=== PATIENT | female | born 1950 | race Caucasian/White ===

== ENCOUNTER 2018-08-04 14:00 | Emergency (ER) | payer MEDICARE, OTHER ==
[2018-08-04] MEDS ORDERED: ASPIRIN 81 MG TABLET, CHEWABLE PO ONE (14:46)
--- NOTE | 2018-08-04 14:49 | ER Document Report ---
ED Medical Screen (RME) - General Chief Complaint: Shortness Of Breath Stated Complaint: SHORT OF BREATH/ABNORMAL LABS Time Seen by Provider: 08/04/18 14:43 TRAVEL OUTSIDE OF THE [place] IN LAST 30 DAYS: No - HPI Notes: 08/04/18 14:49 Short of breath history of mitral valve prolapse seen in urgent care - Related Data Allergies/Adverse Reactions: Sulfa (Sulfonamide Antibiotics) Allergy (Verified 08/04/18 14:02) Past Medical History - Social History Chew tobacco use (# tins/day): No Frequency of alcohol use: None Drug Abuse: None Renal/ Medical History: Denies: Hx Peritoneal Dialysis Past Surgical History: Reports: Hx Cholecystectomy, Hx Hysterectomy Review of Systems - Review of Systems Respiratory: Short of breath Physical Exam - Vital signs Vitals: Temp Pulse Resp BP Pulse Ox 98.1 F 102 H 20 144/76 H 94 08/04/18 14:16 08/04/18 14:16 08/04/18 14:16 08/04/18 14:16 08/04/18 14:16 - Respiratory Respiratory status: No respiratory distress Chest status: Nontender Breath sounds: Normal Chest palpation: Normal - Cardiovascular Rhythm: Regular Heart sounds: Normal auscultation Course - Vital Signs Vital signs: Temp Pulse Resp BP Pulse Ox 98.1 F 102 H 20 144/76 H 97 08/04/18 14:16 08/04/18 14:16 08/04/18 14:16 08/04/18 14:16 08/04/18 14:17
--- NOTE | 2018-08-04 15:07 | RADIOLOGY REPORT (SQ) ---
EXAM DESCRIPTION: CHEST SINGLE VIEW COMPLETED DATE/TIME: 08/04/2018 2:57 pm REASON FOR STUDY: sob COMPARISON: None. EXAM PARAMETERS: NUMBER OF VIEWS: One view. TECHNIQUE: Single frontal radiographic view of the chest acquired. RADIATION DOSE: NA LIMITATIONS: None. FINDINGS: LUNGS AND PLEURA: Small bilateral pleural effusions are present. Pulmonary vascular congestion with mild perihilar pulmonary edema bilaterally. No pneumothorax MEDIASTINUM AND HILAR STRUCTURES: No masses. Contour normal. HEART AND VASCULAR STRUCTURES: Mild cardiomegaly BONES: No acute findings. HARDWARE: None in the chest. OTHER: No other significant finding. IMPRESSION: Fluid overload or congestive failure with pulmonary vascular congestion, perihilar pulmo nary edema and small bilateral pleural effusions TECHNICAL DOCUMENTATION: JOB ID: [id number] [employer]- All Rights Reserved Reading location - IP/workstation name: [email or web address]
--- NOTE | 2018-08-04 15:24 | ER Document Report ---
ED General - General Chief Complaint: Shortness Of Breath Stated Complaint: SHORT OF BREATH/ABNORMAL LABS Time Seen by Provider: 08/04/18 14:43 Notes: Patient is a 67-year-old female that presents to the emergency department for chief complaint of shortness of breath. Patient reports that over the last 7 or 8 days she is having progressively worse shortness of breath. Dyspnea on exertion, and orthopnea. She was seen at an urgent care yesterday, and was given an IM dose of Lasix, does feel better today, but she had abnormal labs, was advised to come to the emergency department specifically an elevated troponin. She has no prior history of CHF. Denies history of cardiac disease. She does have Parkinson's and myasthenia gravis. She states she did have exertional chest pain several days ago when she was shoveling dirt, but has not had any pain since that time. She is also had some leg swelling but she does not think it is that bad. She denies any recent fevers, chills, cough, or other illnesses. Past Medical History: Parkinson's, peripheral neuropathy, myasthenia gravis Past Surgical History: Hysterectomy, cholecystectomy Social History: Former smoker, quit over 40 years ago, denies alcohol or drug use Family History: Reviewed and noncontributory for presenting illness Allergies: Reviewed, see documented allergy list. REVIEW OF SYSTEMS: Unless otherwise stated in this report the patient's positive and negative responses for review of systems for constitutional, eyes, ENT, cardiovascular, respiratory, gastrointestinal, neurological, genitourinary, musculoskeletal, and integumentary systems and related systems to the presenting problem are either as stated in the HPI or were not pertinent or were negative for the symptoms and/or complaints related to the presenting medical problem. PHYSICAL EXAMINATION: Vital signs reviewed, nursing noted reviewed. GENERAL: Well-appearing, well-nourished and in no acute distress. HEAD: Atraumatic, normocephalic. EYES: Left eye ptosis noted, chronic per patient, extraocular movements intact, sclera anicteric, conjunctiva are normal. ENT: nares patent, oropharynx clear without exudates. Moist mucous membranes. NECK: Normal range of motion, supple without lymphadenopathy LUNGS: Diminished lung sounds at the bases bilaterally, upper arellano noted to have scattered crackles. HEART: Regular rate and rhythm, severe mitral regurg murmur noted ABDOMEN: Soft, nontender, normoactive bowel sounds. No rebound, guarding, or rigidity. No masses appreciated. EXTREMITIES: Nontender, good range of motion, trace bilateral peripheral edema in the lower extremities NEUROLOGICAL: No focal neurological deficits. Moves all extremities spontaneously Motor and sensory grossly intact on exam. PSYCH: Normal mood, normal affect. SKIN: Warm, Dry, normal turgor, no rashes or lesions noted on exposed skin TRAVEL OUTSIDE OF THE [place] IN LAST 30 DAYS: No - Related Data Allergies/Adverse Reactions: Sulfa (Sulfonamide Antibiotics) Allergy (Verified 08/04/18 14:02) Past Medical History - Social History Smoking Status: Never Smoker Chew tobacco use (# tins/day): No Frequency of alcohol use: None Drug Abuse: None Family History: Reviewed & Not Pertinent Patient has suicidal ideation: No Patient has homicidal ideation: No Renal/ Medical History: Denies: Hx Peritoneal Dialysis Past Surgical History: Reports: Hx Cholecystectomy, Hx Hysterectomy Physical Exam - Vital signs Vitals: Temp Pulse Resp BP Pulse Ox 98.1 F 102 H 20 144/76 H 94 08/04/18 14:16 08/04/18 14:16 08/04/18 14:16 08/04/18 14:16 08/04/18 14:16 Course - Re-evaluation Re-evalutation: Patient seen and examined vital signs reviewed. Laboratory data and imaging were ordered as appropriate for the patient's presenting symptoms and complaint, with consideration of any critical or life threatening conditions that may be associated with their obtained history and exam as noted above. Patient was treated with IV Lasix and aspirin, and placed on supplemental oxygen Results were reviewed when available and demonstrated elevated BNP, chest x-ray demonstrated bilateral large pleural effusions, pulmonary edema The patient was re-evaluated and was improved, still requiring some oxygen, heart rate stable, blood pressure stable Evaluation was most consistent with acute heart failure, suspected recent MT, when patient was having chest pain several days ago, leading to this acute heart failure, and volume overload, I feel the patient will need transfer, and need for heart catheterization, and possible intervention, a call was placed to [facility], as the patient has acute heart failure, does not meet criteria for cardiac catheterization at this institution Results were discussed with the patient at this point after careful consideration I feel that that patient should be transferred to [facility] due to acute heart failure, likely recent NSTEMI. This was discussed with the patient that it is in the best interest for their care to be transferred, the risks and benefits of transfer were discussed, including but not limited to clinical deterioration during transport, respiratory distress, and potential for traumatic injuries. Patient agreed with this plan of care. Patient accepted by Dr. Hull *Note is created using voice recognition software and may contain spelling, syntax or grammatical errors. Laboratory 08/04/18 08/04/18 08/04/18 15:55 15:55 15:55 WBC 9.8 RBC 4.77 Hgb 14.2 Hct 41.9 MCV 88 MCH 29.7 MCHC 33.8 RDW 13.7 Plt Count 263 Seg Neutrophils % 77.9 Lymphocytes % 8.9 L Monocytes % 9.6 Eosinophils % 2.4 Basophils % 1.2 Absolute Neutrophils 7.6 Absolute Lymphocytes 0.9 Absolute Monocytes 0.9 Absolute Eosinophils 0.2 Absolute Basophils 0.1 PT 14.6 INR 1.08 Sodium 140.0 Potassium 4.5 Chloride 104 Carbon Dioxide 21 L Anion Gap 15 BUN 22 H Creatinine 0.68 Est GFR ( Amer) > 60 Est GFR (Non-Af Amer) > 60 Glucose 110 Calcium 9.5 Magnesium 2.0 Total Bilirubin 0.9 Direct Bilirubin 0.2 Neonat Total Bilirubin Not Reportable Neonat Direct Bilirubin Not Reportable Neonat Indirect Bili Not Reportable AST 35 ALT 28 Alkaline Phosphatase 109 Creatine Kinase 217 H CK-MB (CK-2) Troponin I NT-Pro-B Natriuret Pep Total Protein 6.7 Albumin 3.8 Lipase 162.2 08/04/18 08/04/18 15:55 18:45 WBC RBC Hgb Hct MCV MCH MCHC RDW Plt Count Seg Neutrophils % Lymphocytes % Monocytes % Eosinophils % Basophils % Absolute Neutrophils Absolute Lymphocytes Absolute Monocytes Absolute Eosinophils Absolute Basophils PT INR Sodium Potassium Chloride Carbon Dioxide Anion Gap BUN Creatinine Est GFR ( Amer) Est GFR (Non-Af Amer) Glucose Calcium Magnesium Total Bilirubin Direct Bilirubin Neonat Total Bilirubin Neonat Direct Bilirubin Neonat Indirect Bili AST ALT Alkaline Phosphatase Creatine Kinase CK-MB (CK-2) 7.64 H Troponin I 0.027 0.035 NT-Pro-B Natriuret Pep 3960 H Total Protein Albumin Lipase Chest X-Ray 08/04/18 14:46 IMPRESSION: Fluid overload or congestive failure with pulmonary vascular congestion, perihilar pulmonary edema and small bilateral pleural effusions - Vital Signs Vital signs: Temp Pulse Resp BP Pulse Ox 98.1 F 102 H 20 105/73 92 08/04/18 14:16 08/04/18 14:16 08/04/18 23:01 08/04/18 23:01 08/04/18 23:01 - Laboratory Result Diagrams: 08/04/18 15:55 08/04/18 15:55 Laboratory results interpreted by me: 08/04/18 08/04/18 08/04/18 15:55 15:55 15:55 Lymphocytes % 8.9 L Carbon Dioxide 21 L BUN 22 H Creatine Kinase 217 H CK-MB (CK-2) 7.64 H NT-Pro-B Natriuret Pep 3960 H - EKG Interpretation by Me Additional EKG results interpreted by me: EKG demonstrates sinus tachycardia with a ventricular rate of 103 bpm, normal axis, normal intervals, there is slight ST depressions in leads V3 and V4 and V5 , T wave inversion in lead III. No prior for comparison. Discharge - Discharge Clinical Impression: Hypoxia Acute exacerbation of CHF (congestive heart failure) Qualifiers: Heart failure type: systolic Qualified Code(s): I50.23 - Acute on chronic systolic (congestive) heart failure Condition: Stable Disposition: [facility]
[2018-08-04] MEDS ORDERED: FUROSEMIDE INJ/PF 40 MG/4 ML SDV IV ONE (15:41)
[2018-08-04 16:08] LABS: ABSOLUTE BASOPHILS # (AUTO) 0.1 10^3/uL (0.0-0.2); ABSOLUTE EOSINOPHILS # (AUTO) 0.2 10^3/uL (0.0-0.6); ABSOLUTE LYMPHOCYTES (AUTO) 0.9 10^3/uL (0.5-4.7); ABSOLUTE MONOCYTES (AUTO) 0.9 10^3/uL (0.1-1.4); ABSOLUTE NEUT (AUTO) 7.6 10^3/uL (1.7-8.2); BASOPHILS % (AUTO) 1.2 % (0-2); EOSINOPHILS % (AUTO) 2.4 % (0-6); HEMATOCRIT 41.9 % (36.0-47.0); HEMOGLOBIN 14.2 g/dL (12.0-15.5); LYMPHOCYTES % (AUTO) 8.9 % (13-45); MEAN CORPUSCULAR HEMOGLOBIN 29.7 pg (27.0-33.4); MEAN CORPUSCULAR HGB CONC 33.8 g/dL (32.0-36.0); MEAN CORPUSCULAR VOLUME 88 fl (80-97); MONOCYTES % (AUTO) 9.6 % (3-13); PLATELET COUNT 263 10^3/uL (150-450); RED BLOOD COUNT 4.77 10^6/uL (3.72-5.28); RED CELL DISTRIBUTION WIDTH 13.7 % (11.5-14.0); SEGMENTED NEUTROPHILS % (AUTO) 77.9 % (42-78); TOTAL CELLS COUNTED % (AUTO) 100 %; WHITE BLOOD COUNT 9.8 10^3/uL (4.0-10.5)
[2018-08-04 16:18] LABS: INTERNATIONAL RATION (INR) 1.08; PROTHROMBIN TIME 14.6 SEC (11.4-15.4)
[2018-08-04 16:35] LABS: ALANINE AMINOTRANSFERASE 28 U/L (9-52); ALBUMIN 3.8 g/dL (3.5-5.0); ALKALINE PHOSPHATASE 109 U/L (38-126); ANION GAP 15 (5-19); ASPARTATE AMINO TRANSFERASE 35 U/L (14-36); BILIRUBIN,DIRECT 0.2 mg/dL (0.0-0.4); BILIRUBIN,TOTAL 0.9 mg/dL (0.2-1.3); BLOOD UREA NITROGEN 22 mg/dL (7-20); CALCIUM 9.5 mg/dL (8.4-10.2); CARBON DIOXIDE 21 mmol/L (22-30); CHLORIDE 104 mmol/L (98-107); CREATINE KINASE 217 U/L (30-135); GLUCOSE 110 mg/dL (75-110); LIPASE 162.2 U/L (23-300); POTASSIUM 4.5 mmol/L (3.6-5.0); TOTAL PROTEIN 6.7 g/dL (6.3-8.2)
[2018-08-04 16:46] LABS: CREATINE KINASE MB 7.64 ng/mL (<4.55); TROPONIN I 0.027 ng/mL
--- NOTE | 2018-08-04 22:39 | EKG REPORT ---
SEVERITY:- OTHERWISE NORMAL ECG - SINUS TACHYCARDIA : Confirmed by: Josselyn Frank 04-Aug-2018 22:38:26
[2018-08-05 09:15] VITALS: BP 133/89
--- NOTE | 2018-08-05 18:16 | XCELERA REPORT ---
[address] [address] Transthoracic Echocardiogram Report Name: FIDE KINGSLEY Age: 67 yrs Gender: Female : 1950 Patient Status: Emergency Patient Location: ER Study Date: 08/04/2018 06:29 PM Height: 64 in Weight: 181 lb BSA: 1.9 m2 Procedure: A complete two-dimensional transthoracic echocardiogram was performed (2D, M-mode, spectral and color flow Doppler). The study was technically adequate with some images being suboptimal in quality. Reason For Study: blowing systolic murmer Ordering Physician: SHIRLENE OWENS Performed By: Letha Osborne Interpretation Summary The left ventricular ejection fraction is normal. There is borderline concentric left ventricular hypertrophy. LV diastolic function could not be adequately assessed due to significant valve regurgitation and/or stenosis. The left ventricle is grossly normal size. Wall motion cannot be accurately commented on, but no definite regional wall motion abnormalities noted. The right ventricle is grossly normal size. The right ventricular systolic function is normal. The right atrium is normal. The left atrium is moderately dilated. There is a moderate to severe amount of mitral regurgitation There is no mitral valve stenosis. There is no aortic valve stenosis No aortic regurgitation is present. The aortic root is not well visualized but is probably normal size. The inferior vena cava was not well visualized There is no pericardial effusion. MMode/2D Measurements & Calculations RVDd: 2.6 cm LVIDd: 5.3 cm FS: 34.7 % Ao root diam: 2.7 cm IVSd: 0.81 cm LVIDs: 3.5 cm EDV(Teich): 134.5 ml Ao root area: 5.9 cm2 LVPWd: 0.96 cm ESV(Teich): 49.3 ml LA dimension: 4.2 cm EF(Teich): 63.4 % Doppler Measurements & Calculations MV E max maulik: MV P1/2t max maulik: Ao V2 max: LV V1 max P.5 cm/sec 206.3 cm/sec 158.8 cm/sec 3.8 mmHg MV A max maulik: MV P1/2t: 57.5 msec Ao max PG: LV V1 max: 76.1 cm/sec MVA(P1/2t): 3.8 cm2 10.1 mmHg 97.4 cm/sec MV E/A: 2.5 MV dec slope: 1051 cm/sec2 MV dec time: 0.17 sec PA V2 max: PI end-d maulik: TR max maulik: MV P1/2t-pr_phl: 117.3 cm/sec 155.4 cm/sec 332.6 cm/sec 57.5 msec PA max P.2 mmHg TR max P.2 mmHg Left Ventricle The left ventricle is grossly normal size. There is borderline concentric left ventricular hypertrophy. The left ventricular ejection fraction is normal. LV diastolic function could not be adequately assessed due to significant valve regurgitation and/or stenosis. Wall motion cannot be accurately commented on, but no definite regional wall motion abnormalities noted. Right Ventricle The right ventricle is grossly normal size. There is normal right ventricular wall thickness. The right ventricular systolic function is normal. Atria The right atrium is normal. The left atrium is moderately dilated. Interarterial septum not well visualized and not well dopplered. Cannot comment on ASD/PFO presence. Mitral Valve The mitral valve leaflets are sclerotic and show some degree of functional abnormality. There is prolapse of the posterior mitral valve leaflet(s). There is no mitral valve stenosis. There is a moderate to severe amount of mitral regurgitation. Aortic Valve The aortic valve is grossly normal. There is no aortic valve stenosis. No aortic regurgitation is present. Tricuspid Valve The tricuspid valve is not well visualized secondary to technical limitations. There is no tricuspid stenosis. There is a mild amount of tricuspid regurgitation. There is moderate pulmonary hypertension by echo. Best estimated right ventricular systolic pressure is elevated at 40-50mmHg. Pulmonic Valve The pulmonic valve is not well visualized. Great Vessels The aortic root is not well visualized but is probably normal size. The inferior vena cava was not well visualized. Effusions There is no pericardial effusion. : SHIRLENE OWENS > Josselyn Frank
== END 2018-08-05 09:19 | disposition short-term general hospital (02) ==
LOC: ER 14:00
DX: I50.23 Acute on chronic systolic (congestive) heart failure (principal); R09.02 Hypoxemia; R06.02 Shortness of breath; R06.00 Dyspnea, unspecified; R79.9 Abnormal finding of blood chemistry, unspecified; Z87.891 Personal history of nicotine dependence; M79.89 Other specified soft tissue disorders
CPT/HCPCS: 93005; 94640; 99285; 96374; 36415; 82553; 82550; 83690; 83735; 85025; 85610; 80053; 84484; 83880; 93306; 71045; 93010; A9270; J1940